=== PATIENT | female | born 1945 | race Asian ===

== ENCOUNTER 2019-03-25 12:01 | Day surgery (SDC) | payer MEDICARE, OTHER ==
[~2019-03-25] VITALS: Wt 68.5 kg
[~2019-03-25 12:01] MED LIST: CALCIUM + D SO1 EACH PO; CYAN500 PO; Calcium Carb 51 EACH PO; Combigan Eye Dro5 ML; DORZOLAMIDE 2%10 ML BOTHEYES; ELIQUIS2.5 MG PO; FLUT1DIS2 INH; Glucoten Caple1 EACH PO; KETO200; LORA1SY PO; LOTE.2OPSU; LUMIGAN2.5 ML BOTHEYES; METAMUCIL0.4 GM PO; MULTI-VITAMIN1 EACH PO; OMEPRAZOLE20 MG PO; VITAMIN D-32000 UNIT PO
--- NOTE | 2019-03-25 13:23 | NUR ---
History, Chart, Medications and Allergies reviewed before start of procedure. Patient States Post-Procedure ride home has been arranged.
--- NOTE | 2019-03-25 14:54 | NUR ---
Patient up to Ambulate independently. Gait steady. Discharge instructions reviewed with patient. Patient verbalizes understanding. Copy given to patient to take home. Patient States Post-Procedure ride home has been arranged. Discharged via wheelchair to private car for ride home.
== END 2019-03-25 23:19 | disposition home or self-care (01) ==
LOC: ORSCMMR 12:01 → ORD 13:30 → ORSCMMR 23:19
PROVIDERS: Internal Medicine Gastroenterology
PROC: 0DB68ZX Excision of Stomach, Via Natural or Artificial Opening Endoscopic, Diagnostic (ICD-10-PCS; principal; 2019-03-25 13:30)
PROC: 0D568ZZ Destruction of Stomach, Via Natural or Artificial Opening Endoscopic (ICD-10-PCS; principal; 2019-03-25 13:30)
PROC: 0DB98ZX Excision of Duodenum, Via Natural or Artificial Opening Endoscopic, Diagnostic (ICD-10-PCS; principal; 2019-03-25 13:30)
DX: D64.9 Anemia, unspecified (principal); Q27.33 Arteriovenous malformation of digestive system vessel; K31.89 Other diseases of stomach and duodenum; K29.00 Acute gastritis without bleeding; B96.81 Helicobacter pylori [H. pylori] as the cause of diseases classified elsewhere; K21.9 Gastro-esophageal reflux disease without esophagitis; J44.9 Chronic obstructive pulmonary disease, unspecified; I48.91 Unspecified atrial fibrillation; Z87.891 Personal history of nicotine dependence; Z79.01 Long term (current) use of anticoagulants; Z79.899 Other long term (current) drug therapy
CPT/HCPCS: 88305; 88342; J2704; J7120

== ENCOUNTER → 2019-06-27 | Outpatient (CLI) | payer MEDICARE, OTHER ==
[2019-06-27 12:38] LABS: BASOPHILS ABSOLUTE AUTO 0.01 K/mm3 (0.00-0.23); BASOPHILS PERCENT AUTO 0 % (0-2); EOSINOPHILS ABSOLUTE AUTO 0.19 K/mm3 (0.00-0.68); EOSINOPHILS PERCENT AUTO 2 % (0-6); Hematocrit 35.9 % (33.0-51.0); Hemoglobin 11.8 g/dL (11.5-16.0); IMMATURE GRAN ABSOLUTE AUTO 0.04 K/mm3 (0.00-0.10); IMMATURE GRAN PERCENT AUTO 0 % (0-1); LYMPHOCYTES ABSOLUTE AUTO 1.54 K/mm3 (0.84-5.20); LYMPHOCYTES PERCENT AUTO 13 % (21-46); MONOCYTES ABSOLUTE AUTO 0.83 K/mm3 (0.16-1.47); MONOCYTES PERCENT AUTO 7 % (4-13); Mean Corpuscular HGB 29.2 pg (26.0-34.0); Mean Corpuscular HGB Conc 32.9 g/dL (31.5-36.5); Mean Corpuscular Volume 89 fL (80-100); Mean Platelet Volume 11.4 fL (9.1-12.4); NEUTROPHILS PERCENT AUTO 77 % (41-73); Platelet Count 298 K/mm3 (150-400); RDW Coefficient Variation 13.2 % (11.7-14.2); RDW Standard Deviation 43.5 fL (35.1-46.3); Red Blood Cell Count 4.04 M/mm3 (3.80-5.20); White Blood Cell Count 11.51 K/mm3 (4.00-11.30)
== END | disposition home or self-care (01) ==
LOC: LAB SHORT 12:25 → LAB EV 12:25
PROVIDERS: Physician Assistant Surgical
DX: M79.644 Pain in right finger(s) (principal)
CPT/HCPCS: 84550; 85025

== ENCOUNTER 2020-04-18 06:31 | Day surgery (SDC) | payer MEDICARE, OTHER ==
[~2020-04-18] VITALS: Ht 160 cm; Wt 65.0 kg
== END 2020-04-18 08:49 | disposition home or self-care (01) ==
LOC: ORSCSDS 06:31
PROVIDERS: Internal Medicine Gastroenterology
PROC: 0DBM8ZX Excision of Descending Colon, Via Natural or Artificial Opening Endoscopic, Diagnostic (ICD-10-PCS; principal; 2020-04-18 08:00)
DX: D64.9 Anemia, unspecified (principal); D12.4 Benign neoplasm of descending colon; K64.8 Other hemorrhoids; K57.30 Diverticulosis of large intestine without perforation or abscess without bleeding; J44.9 Chronic obstructive pulmonary disease, unspecified; I10 Essential (primary) hypertension; E78.5 Hyperlipidemia, unspecified; I48.91 Unspecified atrial fibrillation; J45.909 Unspecified asthma, uncomplicated; Z87.891 Personal history of nicotine dependence; Z79.01 Long term (current) use of anticoagulants; Z79.899 Other long term (current) drug therapy
CPT/HCPCS: 88305; J0461; J2405; J2704; J7120

== ENCOUNTER → 2023-12-09 | Outpatient (CLI) | payer MEDICARE, OTHER | END | disposition home or self-care (01) | LOC: LAB 16:54 → LAB SHORT 16:54 | DX: N39.498 Other specified urinary incontinence (principal) | CPT/HCPCS: 87086 ==